=== PATIENT | male | born 1950 | race Caucasian/White ===

== ENCOUNTER 2018-11-16 16:30 | Inpatient (IN) ==
--- NOTE | 2018-11-16 16:50 | PROVIDER DOCUMENTATION ---
HPI-General Adult - General Chief Complaint: Syncope Stated Complaint: SYNCOPE Time Seen by Provider: 11/16/18 16:32 Source: patient, family, EMS Allergies/Adverse Reactions: Patient Allergies Allergy/AdvReac Type Severity Reaction Status Date / Time No Known Allergies Allergy Verified 11/16/18 16:51 - History of Present Illness -Gen Adult Nature of Presenting Problems: Per EMS patient called with concerns that her had slumped over. EMS reports that when they arrived the patient was altered by while they were there the patient became hypotensive and clammy, but was arousable. EMS reports that enrout to the hospital they administered a fluid bolus and and O2. On arrival patient was found to have a HR in the 60s and he was alert and conversant and in no distress. He does not remember the event. He currently denies any pain except chronic pain in his neck. reports that patient got up from one room and stated that he got up too fast and was lightheaded and sat down and slouched down and was not responding, and was only minimally breathing. Timing: reports: improving Context/Activities at Onset: reports: light activity Review of Systems - Adult - REVIEW OF SYSTEMS - ADULT Constitutional: denies: fever Eyes: denies: decreased vision Cardiovascular: denies: chest pain Respiratory: denies: shortness of breath Musculoskeletal: reports: neck pain Integumentary: denies: rash Neurological: reports: syncope Endocrine: reports: other (thyroid disease) Past History - Adult - PAST MEDICAL HISTORY-ADULT Review of Records: reports: Old Records Reviewed Cardiovascular: reports: CAD, HTN Genitourinary: reports: kidney disease Physical Exam-General - CONSTITUTIONAL General Appearance: alert, no apparent distress - EYES Eyes: PERRL/EOMI. negative: conjuctival exudate, scleral icterus - HEAD, EARS, NOSE, MOUTH & THROAT HENMT: normocephalic/atraumatic, other (dry mucous membranes) - NECK Neck: thyromegaly - RESPIRATORY Respiratory: lungs clear, normal breath sounds - CARDIOVASCULAR Cardiovascular: regular rate, rhythm, other (trace lower extremity edema) - GASTROINTESTINAL (ABDOMEN) Abdominal Exam: non tender, soft, hernia (ventral). negative: guarding - MUSCULOSKELETAL Extremity: other (strength 5/5 in upper and LE) - SKIN Integumentary: pallor - NEUROLOGIC Neurologic: threader II-XII nml as tested - PSYCHIATRIC Psych/Mental Status: normal mood/affect, normal thought content, normal thought process Progress - PLAN OF CARE/RESULTS Progress/Plan/Lab Results: Orders Category Date Time Status CBC WITH ELECTRONIC DIFF [HEME] Stat Lab 11/16/18 16:44 Uncollected COMPREHENSIVE METABOLIC PANEL [CHEM] Stat Lab 11/16/18 16:44 Uncollected MAGNESIUM [CHEM] Stat Lab 11/16/18 16:44 Uncollected TROPONIN T Stat Lab 11/16/18 16:44 Uncollected Result Diagrams: 11/16/18 16:40 11/16/18 16:40 - EKG 1 EKG Interpretation (*Must complete 3 of following elements*): Abnormal Rate: 69 Rhythm: sinus [place]: normal QRS: normal [place] Interval: prolonged ST Wave: normal Prior EKG Comparison: no prior EKG Comments: 1st degree heart block Departure - Departure Date of Disposition Decision: 11/16/18 Time of Disposition Decision: 19:55 DIAGNOSIS: Bradycardia Stroke Qualifiers: CVA mechanism: unspecified Qualified Code(s): I63.9 - Cerebral infarction, unspecified Syncope Qualifiers: Syncope type: unspecified Qualified Code(s): R55 - Syncope and collapse Disposition: ADMITTED INPATIENT 09 Certified Medical Emergency: Emergent Condition: Serious Referrals and Follow-Ups: Simi Parada CRNP [Primary Care Provider] - - Critical Care Note This patient required my direct & personal management of CC.: No Attestation - Physician/ SALVATORE Attestation Patient care was provided by Advanced Practice Provider:: No The physician spent face to face time with patient:: Yes Advanced Practice Provider documentation review:: Supervising physician onsite and consulted in the evaluation and care of this patient. The physician did have a face to face encounter with the patient.
[2018-11-16 17:02] LABS: BASO# 0.01 X1000 (0.0-0.2); BASO% 0.3 % (0.0-0.8); EOS# 0.05 X1000 (0.0-0.7); EOS% 1.5 % (0.0-10.0); HEMATOCRIT 27.1 % (42.0-52.0); HEMOGLOBIN 8.2 g/dL (14.0-18.0); LYMPH# 0.98 X1000 (1.2-3.4); LYMPH% 28.9 % (20.5-51.1); MCHC 30.3 g/dL (33-37); MCV 79.2 FL (81-99); MONO# 0.26 X1000 (0.11-0.59); MONO% 7.7 % (1.7-9.3); MPV 10.1 FL (7.4-10.4); NEUT# 2.09 X1000 (1.4-6.5); NEUT% 61.6 % (42.2-75.2); PLT 131 X1000 (130-400); RBC 3.42 XMIL (4.7-6.1); WBC 3.39 X1000 (4.8-10.8)
[2018-11-16 17:09] LABS: ALBUMIN 4.1 g/dL (3.5-5.0); CALCIUM 8.7 mg/dL (8.8-10.2); CREATININE 2.2 mg/dL (0.7-1.2); POTASSIUM 3.8 mmol/L (3.5-5.1); TOTAL BILIRUBIN 0.4 mg/dL (0.20-1.00); TOTAL PROTEIN 6.2 g/dL (6.3-8.3)
--- NOTE | 2018-11-16 18:54 | Diag Imaging Result Doc PS360 ---
EXAM: CT HEAD W/O CONTRAST - 11/16/2018 HISTORY: Syncope TECHNIQUE: CT head without contrast COMPARISON: None. FINDINGS: There is a 0.6 cm periventricular lacunar infarct on the left of nonspecific age. There is no other infarct identified, although acute infarcts may not be immediately visible. There is no evidence of intracranial hemorrhage, mass effect, midline shift, or hydrocephalus. There is no evidence of skull fracture. IMPRESSION: 0.6 cm periventricular lacunar infarct on the left of nonspecific age. No other visible acute intracranial abnormality. No hemorrhage or mass effect. This exam was performed using automated exposure control, adjustment of mA or kV according to patient size, and/or use of iterative reconstruction technique. Electronically signed by Baldo Mak 11/16/2018 6:52 PM
[2018-11-16] MEDS ORDERED: ASPIRIN PO ONE ×2 (19:07→19:57)
--- NOTE | 2018-11-16 19:10 | Diag Imaging Result Doc PS360 ---
EXAM: CHEST-1 VIEW - 11/16/2018 HISTORY: syncope TECHNIQUE: Portable chest one view COMPARISON: None. FINDINGS: Heart size appears the upper range of normal. Inspiration is somewhat shallow. The lungs appear clear. There is no pleural effusion or pneumothorax identified. IMPRESSION: Somewhat shallow inspiration. No other evidence of acute disease. Electronically signed by Baldo Mak 11/16/2018 7:08 PM
[2018-11-16 20:52] LABS: HEMOGLOBIN A1C 7.4 % (4.8-6.0)
--- NOTE | 2018-11-16 20:56 | HISTORY AND PHYSICAL ---
ADDENDUM TO HISTORY AND PHYSICAL: Mr. Allen is a 67-year-old man brought in today because he passed out and was unresponsive for a few seconds, per his . He reports that he stood up to meet his at the door when she came in, felt lightheaded, and felt he was going to pass out, so he had to hold onto a table. Eventually, he worked his way to sit in a chair, and his noticed that he slumped in the chair and was grunting, and noticed that his left arm was trembling. She managed to hyperextend his neck, and then noticed that his breathing became clearer. She at one point, thought he was not breathing. After a few seconds, he snapped out of this spell and wondered what had happened. The patient denies any antecedent cardiorespiratory complaints and denies any residual neurological complaints. A CT the done in the ER, did show a periventricular lacunar infarct of nonspecific age. His other workup was essentially benign. White count 3827, platelets 131,000. His BUN is 36 and creatinine is 2.2. He had no other BUN and creatinine to compare with. The patient denies any change in his medications to the best of his recollection. His blood sugar 160, also. When I saw him, his blood pressure was 168/90. His heart rate was 67, respirations 18, temperature 97.8. His overall exam, cranial nerves intact. No focal deficits on his exam. Cardiovascular exam is grossly benign. He is A O x3. I suspect this patient may have had a syncopal event secondary to poor intravascular blood flow from postural hypotension. His renal function, his creatinine is 2.2, and I do not know if this is new or if his creatinine has worsened from his medications. He denies any fluid losses or blood losses, however. I would recommend fluids at this time and stroke workup, also. Revision of all of his home medications should be done and he should be checked for orthostasis in the morning. cc: Heaven Martinez MD
[2018-11-16 20:57] LABS: INR 1.13; PROTIME 14.6 Seconds (11.0-16.0)
[2018-11-16 21:09] LABS: PTT 25.9 Seconds (22.3-41.8)
--- NOTE | 2018-11-16 21:13 | EKG Report ---
Test Performed on : 11/16/2018 4:32:42 PM Test Reason : Syncope Blood Pressure : / mmHG Vent. Rate : 069 BPM Atrial Rate : 069 BPM P-R Int : 212 ms QRS Dur : 104 ms QT Int : 414 ms P-R-T Axes : 035 002 016 degrees QTc Int : 443 ms Sinus rhythm. with 1st degree AV block. Inferior infarct , age undetermined Abnormal ECG No previous ECGs available Unconfirmed Result
[2018-11-16] MEDS ORDERED: TYLENOL PO PRN (22:33)
[2018-11-16] MEDS ORDERED: ZOFRAN IV PRN (22:33)
[2018-11-16] MEDS ORDERED: NS 1,000 ML IV SCH (23:00)
[2018-11-16] MEDS: FISH OIL CONCENTRATE PO SCH (23:15)
--- NOTE | 2018-11-17 00:20 | HISTORY AND PHYSICAL ---
PRIMARY CARE PROVIDER: Dr. Amadeo Brown. PROFILE SAW OPERATOR: Dr. Georgi Gates. DATE AND TIME: 11/16/2018 at 2030. CHIEF COMPLAINT: Syncope. HISTORY OF PRESENT ILLNESS: Mr. Allen is a 67-year-old male with a past medical history most notable for coronary artery disease status post stent placement x1, COPD, diabetes mellitus, hypertension, and chronic kidney disease. The patient reports that he has been having problems with anemia and has been feeling more fatigued than normal. He states that given this, he was ordered to have an EGD and colonoscopy. The patient states he actually was beginning the prep for this afternoon, he had began the Dulcolax medication portion of the prep, though had not started the GoLYTELY yet. He stated that other than this and feeling fatigued, that he had felt fine all day as well as the past couple days. He denies not feeling well recently or being sick. He denied any complaints, other than fatigue, prior to his episode this evening. He also denied any new or recent changes to any of his medications. The patient states that he did feel a little dizzy, so he went and sat down in his chair. The patient states that he had gotten up from his chair, was going to walk into the kitchen and began to feel dizzy. He states secondary to this, he did immediately return to his chair and sit back down, though his states when he sat down that he slumped over forward and was unresponsive. She stated for a period of approximately 3 minutes that she did try to awaken him. She said initially when he was slumped over that he seemed to not be breathing okay, and at one point she thought he was not breathing at all. She was able to get his head leaned back and then his breathing improved. She did call EMS. Upon their arrival, according to the ER note from the nurse, they stated that his blood pressure was 45/30 at the time of their arrival and his heart rate was in the 20s to 30s. His stated that he was pale and when he did come around, he was a little confused, though this quickly resolved. Upon arrival to the ER, the patient's heart rate had improved, he was 70 systolic. He did receive what looks like just a little bit under a 500 mL bolus from EMS. Though, they did still note that he was slightly pale and a little diaphoretic upon arrival. His vital signs were temperature 97.8 degrees, heart rate 67, respirations 18, blood pressure is 133/70, oxygen saturation is 100% on room air. Other than the fatigue and dizziness, as previously mentioned, which the patient states his dizziness has not occurred since his syncopal episode. The patient denies any other symptoms. He denies any headache, visual disturbances, chest pain, shortness of breath, abdominal pain, nausea, vomiting, or diarrhea. He denies any dysuria or urinary frequency. He denies any pain, numbness, tingling, or swelling in extremities. His denies him to her knowledge, not acting like himself today or being confused. She denied him having any speech disturbances that she was aware of. Upon evaluation in the ER, patient's EKG did show sinus rhythm with a first- degree AV block at a rate of 69 with a QTc of 443, though at this time, we are uncertain if this first-degree block has been present previously. The patient has just recently moved here within the last year and a half from [place], [place], and has not previously been admitted to our facility. They noted that upon arrival, he was alert and oriented to person, place, time, and situation. Upon my assessment, the patient was sitting up in bed. His skin color does look slightly pale, though he is not in any distress. He was sitting up in bed, he is awake and alert. He is oriented to person, place, time, and situation. He did answer questions and follow commands appropriately. He is denying any symptoms at this time. He denies any history of a stroke, though CT of the head did show a lacunar infarct on the left of nonspecific age. There was no other acute intracranial abnormalities. CK and troponin were negative, though he is a little anemic with a hemoglobin 8 and hematocrit 27. Except for his creatinine being elevated 2.2 with a GFR 30, which he does have chronic kidney disease, all other labs were unremarkable. He was given an aspirin in the ER. He will be admitted for further treatment and evaluation of his syncope and rule out possible stroke as well. REVIEW OF SYSTEMS: A 14-point review of systems was conducted with the patient and all were negative, except for pertinent positives mentioned in the above HPI. PAST MEDICAL HISTORY: 1. COPD. 2. Diabetes mellitus. 3. Hyperlipidemia. 4. Hypertension. 5. Chronic kidney disease. 6. Hypothyroidism. 7. BPH. 8. Coronary artery disease status post cardiac stent placement x1 on 08/18/2008. PAST SURGICAL HISTORY: 1. Cardiac stent placement x1 in 2008. 2. A sinus surgery. SOCIAL HISTORY: The patient is a former smoker. He did smoke 2 to 3 packs per day for a period of approximately 25 years, though quit smoking over 20 years ago. He states he only used to drink very rarely, though has not had any alcohol since 2007. He does use smokeless tobacco at this time. There is no history of illicit drug use. He is , his was present at bedside during our examination. He is retired. FAMILY HISTORY: Positive for his Mother having a history of diabetes mellitus and a pacemaker. His Father had diabetes mellitus as well. He does have a brother who has a pacemaker also. ALLERGIES: Patient has no known allergies. HOME MEDICATIONS: 1. Ventolin HFA inhaler 1 puff inhaled p.r.n. as directed for wheezing and shortness of breath. 2. Aspirin 81 mg p.o. daily. 3. Lipitor 20 mg p.o. daily. 4. Plavix 75 mg p.o. daily. 5. Cardura 4 mg p.o. daily. 6. Lasix 40 mg p.o. daily. 7. Glimepiride 4 mg p.o. b.i.d. 8. Levemir FlexTouch 50 units subcutaneous daily. 9. Levothyroxine 100 mcg tablet p.o. daily. 10. Tradjenta 5 mg p.o. daily. 11. Victoza 1.8 mg subcu daily. 12. Losartan potassium 25 mg p.o. daily. 13. Metoprolol 50 mg p.o. daily. 14. Fish oil 1000 mg capsule 1 capsule p.o. b.i.d. 15. Viagra 100 mg p.o. p.r.n. as directed. 16. Trazodone 50 mg p.o. b.i.d. 17. Anoro Ellipta 62.5-25 mcg inhaled, 1 puff inhaled daily. DIAGNOSTIC DATA/LABORATORY RESULTS: White blood cell count is 3390, hemoglobin 8.2, hematocrit 27.1, platelet count is 131,000. PT 14.6, INR 1.13, PTT is 25.9. Sodium 135, potassium 3.8, chloride 99, serum bicarb is 26, BUN is 36, creatinine 2.2. GFR 30, glucose 162, calcium 8.7, magnesium 2. Liver function tests within normal limits. CK 109, troponin less than 0.01. TSH was 3.24. EKG did show sinus rhythm with a first-degree AV block at a rate of 69 with a QTc of 443. Chest x-ray showed somewhat shallow inspiration, though no other evidence of acute disease, as per Radiology. Head CT without contrast showed at 0.6 cm periventricular lacunar infarct on the left of nonspecific age. There were no other visible acute intracranial abnormalities. There was no hemorrhage or mass effect. This is per Radiology. Pending diagnostic studies, at this time, are a urinalysis and anemia profile. PHYSICAL EXAMINATION: VITAL SIGNS: The patient's heart rate is 74, respirations 18, blood pressure is 135/63, oxygen saturation is 100% on nasal cannula at 2 L. GENERAL: Mr. Allen is a very pleasant 67-year-old male, he was resting in the ER stretcher. He was in no acute distress. He was awake, alert, and able to answer questions appropriately. HEENT: Head is atraumatic, normocephalic. Pupils are equal, round, reactive to light, were 3 mm bilaterally and brisk. EOMs were intact. Subconjunctivae were slightly pale. Oral mucosa was moist. Oropharynx was clear. NECK: Supple. Trachea midline. No carotid bruits noted upon auscultation bilaterally. CARDIOVASCULAR: Patient has S1, S2 present. No murmurs, gallops, rubs appreciated with a regular rate and rhythm. PULMONARY: Patient has symmetrical chest expansion bilaterally. Lung sounds are clear to auscultation in bilateral full strange. ABDOMEN: Soft, nontender. Does not appear to be distended. The patient did have a slightly protuberant abdomen noted. Bowel sounds are present in all 4 quadrants, were normoactive. EXTREMITIES: No cyanosis or edema noted. Pulse, motor, and sensory were intact in all extremities. Radial and pedal pulses were 2+ bilaterally. INTEGUMENTARY: The patient's skin color does look a little pale, though is dry and intact. NEUROLOGICAL: Patient is alert and oriented to person, place, time, and situation. He is able to move all extremities. He is denying any numbness or tingling. His speech is clear and understandable. EOMs were intact. He has no facial droop noted. He has equal hand grasp and muscle grasp bilaterally. He has no arm drift noted. There are no focal neurological deficits noted at this time. ASSESSMENT AND PLAN: 1. Syncope. This may be cardiac and/or neurological in nature. EMS reported that his heart rate was low, in the 20s to 30s, upon arrival as well as his blood pressure was low. He may have had a vagal response or possibly orthostatic hypotension. Though the patient's CT of the head without contrast did show a left lacunar infarct of nonspecific age, we will need to rule out possible stroke as well. For further evaluation of this, we have placed the patient to have an MRI of the brain without contrast and MRA of the neck with contrast in the morning. He will have an echocardiogram as well. We have placed a consult with Cardiology and Neurology. We will perform a series of cardiac enzymes, a lipid profile, and repeat an EKG in the morning. He will be placed on continuous cardiac telemetry with vital signs q.4 hours. We will monitor his condition closely. We have continued his aspirin and Plavix at this time. We will await Cardiology and Neurology's evaluation and further recommendations for management. 2. Possible cerebrovascular accident. We will continue with treatment as mentioned above for #1. 3. History of coronary artery disease status post cardiac stent placement x1. We will continue with the patient's aspirin and Plavix, though we have held his metoprolol and losartan, at this time, given his syncope and reports that he was bradycardic and hypotensive. We will continue to monitor this closely. 4. Hypertension. As previously mentioned above, we have held his metoprolol and losartan at this time. We will monitor his blood pressure closely. 5. Hyperlipidemia. We will continue his Lipitor. We are obtaining a lipid profile in the morning. 6. Diabetes mellitus. We have placed the patient on a sliding scale regular insulin per low-dose protocol. We will do pattern fingerstick blood sugars. He will be on a diabetic diet. 7. Chronic kidney disease. The patient does report he has a history of kidney disease, though we do not know what his baseline is at this time. We will avoid nephrotoxic medications and renally dose medicines as necessary. We are going to provide the patient with some gentle fluid hydration with normal saline 100 mL/h. We will do strict intake and output. We will continue to follow. 8. Anemia. We have placed an order for an anemia profile. The patient did report that he has been fatigued lately and they were going to do an EGD and colonoscopy for continued evaluation of this and to rule out possible blood loss from any gastrointestinal bleeding. Given this, we will go ahead and order a Hemoccult stool. Though the patient is a little anemic, I am not sure if this may have contributed to his syncope. We are going to hydrate him and do orthostatics in the morning. 9. Deep vein thrombosis prophylaxis will be provided with sequential compression devices. The patient has been placed on the medical floor with telemetry. We will do vital signs q.4 hours, strict intake and output, incentive spirometry. He will be on a diabetic diet, though will be NPO after midnight tonight just for a lipid profile in the morning, then his diet can be resumed. We will await results of diagnostic studies that have been ordered for the morning along with other labs, as mentioned above. We will repeat a CBC and BMP in the morning. Further orders and recommendations pending hospital course, diagnostic studies, and physician evaluation. Dictated by HESHAM Hoang for Heaven Martinez MD cc: Heaven Martinez MD MTDD
[2018-11-17] MEDS: DUONEB (A & A) INH PRN (03:15)
[2018-11-17] MEDS: SYNTHROID PO SCH (06:23)
[2018-11-17 07:17] LABS: CALCIUM 8.3 mg/dL (8.8-10.2); CREATININE 2.1 mg/dL (0.7-1.2); POTASSIUM 3.9 mmol/L (3.5-5.1)
[2018-11-17 07:24] LABS: BASO# 0.01 X1000 (0.0-0.2); BASO% 0.2 % (0.0-0.8); EOS# 0.07 X1000 (0.0-0.7); EOS% 1.5 % (0.0-10.0); HEMATOCRIT 26.1 % (42.0-52.0); HEMOGLOBIN 7.9 g/dL (14.0-18.0); LYMPH% 21.6 % (20.5-51.1); MCHC 30.3 g/dL (33-37); MCV 79.3 FL (81-99); MONO# 0.32 X1000 (0.11-0.59); MONO% 6.9 % (1.7-9.3); MPV 10.5 FL (7.4-10.4); NEUT# 3.24 X1000 (1.4-6.5); NEUT% 69.8 % (42.2-75.2); PLT 146 X1000 (130-400); RBC 3.29 XMIL (4.7-6.1); RDW 15.9 % (11.5-14.5); WBC 4.64 X1000 (4.8-10.8)
--- NOTE | 2018-11-17 07:32 | EKG Report ---
Test Performed on : 11/17/2018 07:14:47 AM Test Reason : Syncope,Bradycardia Blood Pressure : / mmHG Vent. Rate : 071 BPM Atrial Rate : 071 BPM P-R Int : 208 ms QRS Dur : 098 ms QT Int : 394 ms P-R-T Axes : 053 007 020 degrees QTc Int : 428 ms Normal sinus rhythm. Cannot rule out Inferior infarct (cited on or before 16-NOV-2018) Abnormal ECG When compared with ECG of 16-NOV-2018 16:32, (Unconfirmed) No significant change was found Confirmed by Mai HERMAN, Aguila Ulloa ([id number]) on 11/17/2018 8:44:56 AM
[2018-11-17 07:43] LABS: FERRITIN 8 ng/mL (30-400)
[2018-11-17] MEDS ORDERED: ATIVAN IV ONE (10:06)
[2018-11-17 10:40] LABS: URINE SOURCE CLEAN CATCH
[2018-11-17 10:44] LABS: BILIRUBIN URINE NEGATIVE (NEGATIVE); BLOOD URINE NEGATIVE (NEGATIVE); COLOR YELLOW; GLUCOSE URINE NEGATIVE (NEGATIVE); KETONE URINE NEGATIVE (NEGATIVE); LEUKOCYTES URINE NEGATIVE (NEGATIVE); NITRITE URINE NEGATIVE (NEGATIVE); PH URINE 6.5; PROTEIN URINE NEGATIVE (NEGATIVE); SP GRAVITY URINE 1.012; TURBIDITY URINE CLEAR (CLEAR); UROBILINOGEN URINE NORMAL (NORMAL)
[2018-11-17 10:45] LABS: UR EPITHELIAL CELLS <10 /HPF (<10); URINE BACTERIA NEGATIVE /HPF; URINE RBC <10 /HPF (<10); URINE WBC <10 /HPF (<10)
[2018-11-17] MEDS: LIPITOR PO SCH (10:46)
[2018-11-17] MEDS: FISH OIL CONCENTRATE PO SCH ×2 (10:47→22:53)
[2018-11-17] MEDS: PLAVIX PO SCH (10:47)
[2018-11-17] MEDS: ASPIRIN PO SCH (10:47)
--- NOTE | 2018-11-17 11:51 | Diag Imaging Result Doc PS360 ---
EXAM: MRI BRAIN W/O CONTRAST 11/17/2018 HISTORY: Syncope,Poss. CVA TECHNIQUE: T1 sagittal, axial, axial T2, FLAIR, DWI and coronal gradient echo. COMMENT: There are no previous MR studies available for comparison. There is a small lacune in the centrum semiovale ovale posteriorly on the left. There is no evidence of mass effect, bleed, or abnormal extra-axial fluid collection. There is no evidence of restricted diffusion. IMPRESSION: Minimal microvascular chronic white matter change. No evidence of acute disease. Electronically signed by Reji Rajan 11/17/2018 11:49 AM
--- NOTE | 2018-11-17 12:00 | Diag Imaging Result Doc PS360 ---
EXAM: MRA NECK W/CONT 11/17/2018 HISTORY: Syncope,Poss. CVA TECHNIQUE: 3-D contrast enhanced MRI COMMENT: The vertebral basilar and posterior cerebral arteries proximally are normal in appearance. Both internal carotid arteries are patent. There may be some narrowing of the proximal right internal carotid artery. This appears fairly smooth. There are no previous studies available for comparison. The proximal portions of both middle cerebral and anterior cerebral arteries are apparently patent. 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 Comparison with previous studies and correlation with carotid Doppler ultrasound may be desirable. Electronically signed by Reji Rajan 11/17/2018 11:58 AM
--- NOTE | 2018-11-17 13:08 | CONSULTATION ---
DATE OF CONSULTATION: 11/17/2018 HISTORY OF PRESENT ILLNESS: Mr. Allen is 67 years old and he had a passing out spell yesterday. History from the patient is that he felt lightheaded when he stood. He walked through the house, put his hands down on furniture to steady himself and had a sense that he needed to sit down. He got to a spot to sit and sat down. He next realized he was "coming to" with on the telephone, calling 911. He has complete recollection of events prior to and after the short period of unconsciousness. reports seeing the patient sit down and slump forward with gurgling breathing and some left arm jerking. Left arm jerking might have been rhythmic. She did not notice jerking of any other limb. That episode lasted 2 or 3 minutes and resolved spontaneously. She believes that he seemed to breathe more consistently when she put her hands on his shoulders and pushed him back into the chair. There was no incontinence, tongue biting, lip biting. There was not definite postictal state. There was no postictal left-sided weakness or other focal neurologic feature. Ambulance was summoned. 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 He has had lightheadedness as often as a few times daily in recent weeks. This had never progressed to the point of collapse or unconsciousness before yesterday. He has never had diagnosed stroke, seizure, serious head injury, other neurologic event. He does not use ethanol. Past history is remarkable for diabetes mellitus, hypertension, dyslipidemia. He was taking aspirin, clopidogrel, atorvastatin, medicines to control blood sugar and blood pressure. He reports no missed doses and no recent medication changes. He has chronic anemia. Colonoscopy was planned for workup for that problem. He was preparing for colonoscopy yesterday. He had not had much oral intake through the day. He had taken his medicines as usual. He had used a Dulcolax suppository with some results. He was having some stomach cramps but he had not started the major portion of the prep and he was not having diarrhea. Workup includes labs showing BUN 36, which was a little bit above baseline. There was low WBC, hemoglobin and hematocrit. Glucose was 150 to 160 initially and then 100 to 120 after admission. A1c was 7.4%. Noncontrast CT of the head showed left periventricular lacune. Brain MRI without contrast was just completed and shows that subcortical left hemisphere lacune with some scattered micro ischemic white matter changes but nothing else focal and nothing acute. Cervical MRA raises question of right internal carotid narrowing which may not be stenotic. Vital sign record shows he has been afebrile. Heart rate has ranged 60s to 80s. Blood pressure systolic has ranged 120s to 130s here. PHYSICAL EXAMINATION: On exam, Mr. Allen is awake, alert, attentive, appropriate. He is completely oriented to all parameters. He is cognitively intact. He discussed recent news with accurate detail. Speech is not dysarthric. Language function is intact on careful bedside testing. Head and neck are unremarkable. Visual strange are full tested by confrontational finger counting. Extraocular movements are full. Facial motility is symmetric. Gag is intact. Tongue is midline. Palate elevates in midline. He can hear. Shoulder shrug is equal. Strength is normal in the arms and legs. He did well on [id number] testing bilaterally. He reports good pinprick appreciation over the hands. I did not test his gait. Reflexes are trace at the ankles and 1+ symmetrically at the wrists. Plantar response is silent bilaterally. IMPRESSION: 1. Recent collapse. Features sound more like postural lightheadedness, syncope, possibly some clonic activity with syncope but much less likely seizure or other primary central nervous system event . I will order EEG for completeness. I encouraged him to stand slowly, to sit quickly if he is lightheaded, to take his medicines as directed and to try to stay well hydrated. 2. MRA evidence of narrowed carotid. This is likely not symptomatic. Carotid ultrasound might provide more helpful information. 3. Clinical evidence of peripheral neuropathy, presumed diabetic neuropathy. I do not think this needs urgent attention. I encouraged him to be aggressive with management of his blood sugar. 4. Imaging evidence of tiny subcortical left hemisphere lacune. This appears to be old and not related in any way to his recent episode. I encouraged him to be aggressive with management of his cerebrovascular risk factors. There is not history of clinical stroke. Thanks for asking Neurology to see Mr. Allen. If EEG is unremarkable, I will not have any other suggestion. cc: MD CLARIBEL Adrian III
--- NOTE | 2018-11-17 14:58 | PROGRESS NOTE ---
DATE: 11/17/2018 INTERVAL HISTORY: Mr. Allen was admitted for syncopal episode. 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 SUBJECTIVE: Currently, patient is denying any complaints. The patient's is at bedside. He has not had any such episode. I discussed with him about the fact that he is on metoprolol losartan as well as furosemide which could contribute to potential postural hypotension. I also discussed with him about holding off on these medications for now. I answered all of their questions. He is about to undergo EEG. VITALS: Temperature 98.5 degrees, pulse 74, respiratory 18, blood pressure 128/63, and saturating 98% on 2 L nasal cannula. PHYSICAL EXAMINATION: General: He does not appear in acute distress. HEENT: Oral cavity is moist. Lungs: Air entry bilaterally equal. No wheeze, rhonchi, or crackles. Cardiovascular: S1, S2 normal. No murmur, rub or gallop. Abdomen: Soft and nontender. Extremities: No lower extremity edema. Neurologic: He is alert and oriented x3. Sensation bilateral upper and lower extremity intact. Motor power 5/5 bilateral upper and lower extremity. No facial asymmetry. Intact calf. Intact speech. LABORATORY: Labs suggestive of microcytic anemia. Normal platelet count. Normal electrolytes. Chronic kidney disease stage 3. MICROBIOLOGY: No data. IMAGING: Neck MRA had proximal narrowing of the right internal carotid artery which may be congenital on comparison with previous study was recommended. Brain MRI had small lacunae in the centrum semiovale posteriorly on the left. Echocardiogram was not performed, and carotid ultrasound was pending. ASSESSMENT AND PLAN: 1. Syncope likely due to postural hypotension. However, seizure needs to be ruled out. Follow up orthostatic vitals. Continue to hold his antihypertensive medication including metoprolol, losartan, doxazosin and furosemide. I will add back as tolerated. I will also follow up with echocardiogram, ultrasound carotids to rule out internal carotid artery stenosis. 2. History of coronary artery disease status post stent in 2008. Continue aspirin, atorvastatin, and clopidogrel. 3. Insulin-dependent diabetes mellitus type 2 as well as chronic kidney disease stage 3. Currently stable. Continue half the dose of detemir until oral intake improves with sliding scale insulin. 4. History of chronic anemia. He should complete outpatient workup where he was scheduled to receive EGD and colonoscopy. 5. Benign prostatic hypertrophy. I am holding his doxazosin, and I will consider direct recommending finasteride. Noticeably, he is also listed to be taking sildenafil which could potentially cause profound hypotension. 6. Disposition: I will continue to monitor patient in the hospital for 24 hours. Plan of care discussed with the patient and his . All of their questions have been answered. cc: Dioni Salomon MD
[2018-11-17] MEDS: HUMALOG SUBQ SCH ×3 (17:38→22:54)
--- NOTE | 2018-11-17 17:52 | ECHO REPORT ---
ORDER DATE: 11/17/2018 REQUESTING PHYSICIAN: Hospitalist. INDICATION: Syncope. M-MODE MEASUREMENTS: Left ventricle end diastole: 5.8. Left ventricle end systole: 3.5. Posterior wall: 1.1. Interventricular septum: 1.1. Left atrium: 4.7. Aortic diameter: 3.5. SUMMARY OF 2-DIMENSIONAL IMAGIN. The study was difficult. Optison was added to optimize visualization of the endocardium. 2. Left ventricular function appears to be normal, estimated at 55% to 60%. There is no wall motion abnormality noted. 3. The right ventricle appears to be normal. 4. The aortic valve looks normal. Color flow mapping unremarkable. 5. The mitral valve looks normal. Color flow mapping unremarkable. 6. Pulsed wave Doppler of mitral inflow shows reversal of the E/A ratio. The ratio is 0.8. 7. Tissue Doppler of septal and lateral mitral annulus averages 7 cm. 8. There is no diastolic dysfunction. 9. The tricuspid valve looks normal. Color flow mapping unremarkable.Pulmonary pressure estimated at 26 mmHg. 10.The pulmonic valve looks normal. Color flow mapping unremarkable. 11.There is no pericardial effusion. No mass, no thrombus. 12.The right-sided chambers do not appear to be dilated. Clinical correlation recommended. cc: Deep Wu MD
[2018-11-17] MEDS ORDERED: LEVEMIR SUBQ SCH (21:00)
--- NOTE | 2018-11-17 21:04 | Carotid Study ---
DATE: 11/17/2018 REFERRING PHYSICIAN: Dr. Salomon. 67-year-old santi. GEOTHERMAL OPERATIONS MANAGER: Christine Stapleton RVT. INDICATION: Transient ischemic attack. FINDINGS: The right ICA/CCA ratio is 1.32, corresponding to a percent stenosis of 40 to 59 percent. The left ICA/CCA ratio is 1.05, corresponding to a percent stenosis of 0 to 39 percent. INTERPRETATION: Mild to moderate atherosclerotic disease, right worse than left, of the bilateral distal common and internal carotid arteries. There is no significant stenosis in either carotid system. cc: MD Dioni Batista MD
[2018-11-17] MEDS ORDERED: INSULIN PEN NEEDLES ONE (22:34)
[2018-11-18] MEDS: HUMALOG SUBQ SCH ×2 (06:09→14:05)
[2018-11-18] MEDS: SYNTHROID PO SCH (06:34)
[2018-11-18] MEDS: FISH OIL CONCENTRATE PO SCH (09:09)
[2018-11-18] MEDS: ASPIRIN PO SCH (09:09)
[2018-11-18] MEDS: LIPITOR PO SCH (09:10)
[2018-11-18] MEDS: PLAVIX PO SCH (09:10)
[2018-11-18] MEDS: DUONEB (A & A) INH PRN (10:08)
[2018-11-18] MEDS ORDERED: COZAAR PO SCH (11:00)
[2018-11-18 11:19] VITALS: BP 149/59
--- NOTE | 2018-11-18 12:58 | PROGRESS NOTE ---
DATE: 11/18/2018 SUBJECTIVE: Mr. Allen has not had any further episodes of syncope, near syncope, collapse. He feels well today. He does not have any specific complaint. His carotid ultrasound was unremarkable. Cervical MRA had raised question of right internal carotid narrowing, but ultrasound does not show significant stenosis. EEG showed nothing remarkable and no epileptiform discharge or other evidence of tendency to seizure. I don't see significant hypotension or bradycardia recorded on vital signs record. I do not have anything new to recommend from Neurology standpoint. I encouraged him to stay well hydrated, to stand slowly and to sit quickly if he is lightheaded. Thanks for asking Neurology to see Mr. Allen. I will be glad to see him again if needed. cc: MD CLARIBEL Adrian III
--- NOTE | 2018-11-18 14:19 | EEG REPORT ---
DATE: 11/17/2018 COMMENT: This is a digitally recorded EEG on a 67-year-old patient with recent collapse, associated left arm jerking, bradycardia and hypotension. FINDINGS: During waking, low to medium amplitude polymorphic and rhythmic theta are recorded across the hemispheres symmetrically. There is very poorly sustained 9 Hz posterior rhythm bilaterally with uncertain reactivity to eye opening. Drowsing occurred briefly. Stage 2 sleep was not recorded. Photic stimulation did not significantly alter the record. Hyperventilation was not done. No definite epileptiform discharge was identified. INTERPRETATION: Normal EEG. CORRELATION: The absence of epileptiform discharges on a single EEG does not exclude a clinical diagnosis of seizures, but there is nothing on this record to suggest a seizure disorder as the reason for his recent episode. cc: Blake Raines III, MD MTDSarthak
--- NOTE | 2018-11-19 05:44 | DISCHARGE SUMMARY ---
ADMISSION DATE: 11/16/2018 DISCHARGE DATE: 11/18/2018 DISCHARGE DISPOSITION: Home with family. DISCHARGE CONDITION: Hemodynamically stable. He is alert and oriented x3. He is able to come out of bed, and go to the bathroom multiple times without any trouble though he did have a drop in his systolic blood pressure while standing up. However, he was not symptomatic. DISCHARGE DIAGNOSES: 1. Syncope most likely due to postural hypotension. 2. Microcytic anemia being worked up through esophagogastroduodenoscopy and colonoscopy outpatient. OTHER DIAGNOSES: 1. History of coronary artery disease status post stent in 2008. 2. Insulin-dependent diabetes mellitus type 2. 3. Chronic kidney disease stage 3. 4. History of chronic anemia, pending esophagogastroduodenoscopy and colonoscopy outpatient. 5. Benign prostatic hypertrophy. 6. 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 7. Hypothyroidism. 8. Benign prostatic hypertrophy. 9. Essential hypertension. CONSULTATION DURING HOSPITAL ADMISSION: Dr. Raines, Neurology. DISCHARGE MEDICATIONS: 1. Anoro Ellipta 62.5 25 mcg inhaler 1 puff daily. 2. Aspirin 81 mg daily. 3. Plavix 75 mg daily. 4. Trazodone 50 mg b.i.d. 5. Fish Oil 1000 mg b.i.d. 6. Glimepiride 4 mg b.i.d. 7. Insulin detemir 50 units subcutaneously daily. 8. Atorvastatin 20 mg daily. 9. Losartan 25 mg daily. 10. Levothyroxine 100 mcg daily. 11. Linagliptin 5 mg daily. 12. Albuterol sulfate inhaler 1 puff inhaled as needed for shortness of breath. 13. Liraglutide 1.8 mg subcu daily. VITALS: At the time of discharge, temperature 97.4 degrees, pulse 84, respiratory rate 18, blood pressure 150/59 and saturating 96% on room air. PHYSICAL EXAMINATION: General: Does not appear in any acute distress. HEENT: Oral cavity is moist. Lungs: Air entry bilaterally equal. No wheeze, rhonchi, or crackles. Cardiovascular: S1, S2 normal. No murmur, rub, or gallop. Abdomen: Soft and nontender. Extremities: No lower extremity edema. Neurologic: He is alert and oriented x3. His examination is nonfocal. His speech is intact. SIGNIFICANT LABORATORY: During hospital admission and discharge, WBC 4.6, hemoglobin 7.9, mean corpuscular volume 79, platelet 146,000, BUN 33, creatinine 2.1, and blood sugar 217. Ferritin was 8 suggestive of iron deficiency anemia. Vitamin B12 718, total cholesterol 100. Urinalysis was negative. SIGNIFICANT MICRO DURING HOSPITAL ADMISSION: None. SIGNIFICANT IMAGING DURING HOSPITAL ADMISSION: 1. Head CT on admission had 0.6 cm periventricular lacunar infarct on the left which was of nonspecific age. There was no however visible acute intracranial pathology. 2. Chest x-ray on admission had somewhat shallow inspiration. No other evidence of acute disease. 3. Neck MRA had proximal narrowing of the right internal carotid artery which may be congenital. 4. Brain MRI had minimal microvascular chronic white matter changes. There was small lacunar in the centrum semiovale posteriorly on the left. Carotid Doppler study had mild to moderate atherosclerotic disease right worse than left of bilateral distal, common and internal carotid arteries. There was no significant stenosis in either carotid system. 5. Electrocardiogram on admission had a sinus rhythm with first-degree AV block, inferior infarct age undetermined. Echocardiogram had ejection fraction of 55 to 60 percent without any wall motion abnormality. The right ventricle appeared normal. There was no intracardiac mass or thrombus. HOSPITAL COURSE SUMMARY: Mr. Allen is a 67 year old man with past medical history of coronary artery disease, essential hypertension, and insulin-dependent diabetes mellitus, who was diagnosed to have microcytic anemia, and was being worked up outpatient. He was to undergo EGD and colonoscopy. However, before he could start his bowel preparation at home when he got up from his chair and was trying to move inside his house had suddenly started developing dizziness so he called his , and he sat down back on his chair. According to , after he is sitting down, he slumped over the chair and was diaphoretic and pale. The entire episode could have lasted about 2 minutes so the EMS was called. Upon arrival, according to the ER note from the nurse, he was hypotensive with a systolic blood pressure in the 60s when the EMS arrived to his house and his pulse rate was in 30s. However, there was no clear documentation of this. In any case, he had regained his consciousness at home within 2 to 3 minutes and was initially a little confused when he was brought to the emergency room. By the time he came in, he was alert and oriented x3 and hemodynamically was stable so the hospitalist team was consulted for further management. He underwent extensive brain imaging including MRI, MRA, ultrasound carotid, echo and EKG which were largely unremarkable without any evidence of ischemic stroke. On orthostatic vital signs, he was noted to have a drop in his systolic blood pressure from 150 in supine position to 115 on standing position. He was also listed to be taking metoprolol, furosemide, losartan and doxazosin. It was thought that his episode was likely because of postural hypotension. Neurology Team was on board, and EEG did not detect any epileptiform discharge. At the time of discharge, his losartan was resumed and he was advised to check his blood pressure. If systolic blood pressure would go more than 140, resume metoprolol after consultation with his heart doctor and regular doctor. TIME SPENT: Less than 30 minutes were spent in discharging this patient. Plan of care was extensively discussed with the patient and his . cc: Dioni Salomon MD MTDD
== END 2018-11-18 14:40 | disposition home or self-care (01) | DRG 312 ==
LOC: SUPCPDRO → ED 16:30 → 3N 21:33 → SUATTDRO 21:33
PROVIDERS: ATTEND Internal Medicine

== ENCOUNTER 2019-01-15 01:22 | Inpatient (IN) ==
[2019-01-15] MEDS ORDERED: NS 1,000 ML IV ONE (01:41)
[2019-01-15 02:02] LABS: BASO# 0.02 X1000 (0.0-0.2); BASO% 0.3 % (0.0-0.8); EOS# 0.03 X1000 (0.0-0.7); EOS% 0.5 % (0.0-10.0); HEMATOCRIT 22.9 % (42.0-52.0); HEMOGLOBIN 6.6 g/dL (14.0-18.0); IMM GRAN# 0.05 X1000 (0.0-0.04); IMM GRAN% 0.8 % (0.0-0.5); LYMPH# 0.98 X1000 (1.2-3.4); LYMPH% 15.2 % (20.5-51.1); MCH 22.8 PG (27-31); MCHC 28.8 g/dL (33-37); MONO# 0.27 X1000 (0.11-0.59); MONO% 4.2 % (1.7-9.3); NEUT# 5.08 X1000 (1.4-6.5); PLT 181 X1000 (130-400); RDW 19.8 % (11.5-14.5); WBC 6.43 X1000 (4.8-10.8)
[2019-01-15 02:07] LABS: INR 1.14; PROTIME 14.8 Seconds (11.0-16.0)
[2019-01-15 02:13] LABS: ALB/GLOB RATIO 1.6; ALBUMIN 3.6 g/dL (3.5-5.0); CALCIUM 8.4 mg/dL (8.8-10.2); CREATININE 2.8 mg/dL (0.7-1.2); TOTAL BILIRUBIN 0.36 mg/dL (0.20-1.00); TOTAL PROTEIN 5.8 g/dL (6.3-8.3)
[2019-01-15] MEDS ORDERED: NS 500 ML IV ONE (02:21)
--- NOTE | 2019-01-15 04:48 | PROVIDER DOCUMENTATION ---
This chart was entered by Anamaria Amador Scribe, acting as scribe for Monica Cabrera MD. HPI-Abdominal Pain/GI Problem - General Chief Complaint: Rectal Bleeding Stated Complaint: G I Bleed Time Seen by Provider: 01/15/19 01:45 Source: patient Allergies/Adverse Reactions: Patient Allergies Allergy/AdvReac Type Severity Reaction Status Date / Time No Known Allergies Allergy Verified 11/16/18 16:51 Home Medications: Home Medication List Medication Instructions Recorded Confirmed Last Taken Type ATORVAstatin [Lipitor] 20 mg PO DAILY 11/16/18 01/15/19 Unknown History Albuterol Sulfate Inhaler 1 puff PO PRN PRN 11/16/18 01/15/19 Unknown History [Ventolin Hfa] Aspirin 81 mg PO DAILY 11/16/18 01/15/19 Unknown History Clopidogrel Bisulfate [Clopidogrel] 75 mg PO DAILY 11/16/18 01/15/19 Unknown History Glimepiride 4 mg PO BID 11/16/18 01/15/19 Unknown History Insulin Detemir [Levemir Flextouch] 50 units SUBQ DAILY 11/16/18 01/15/19 Unknown History Levothyroxine [Synthroid] 1 tab PO DAILY 11/16/18 01/15/19 Unknown History Linagliptin [Tradjenta] 5 mg PO DAILY 11/16/18 01/15/19 Unknown History Losartan Potassium 50 mg PO DAILY 11/16/18 01/15/19 Unknown History [place]-3 Fatty Acids/Fish Oil [Fish 1,000 mg PO BID 11/16/18 01/15/19 Unknown History Oil 1,000 mg Capsule] Trazodone [Desyrel] 50 mg PO BID 11/16/18 01/15/19 Unknown History Umeclidinium Brm/Vilanterol Tr 1 puff PO DAILY 11/16/18 01/15/19 Unknown History [Anoro Ellipta 62.5-25 Mcg INH] Albuterol Sulfate [Ventolin Hfa] 90 mcg PO DAILY 01/15/19 01/15/19 Unknown History Carvedilol 3.125 mg PO DAILY 01/15/19 01/15/19 Unknown History Cholecalciferol (Vitamin D3) 5,000 unit PO DIRECTED 01/15/19 01/15/19 Unknown History [Vitamin D3] Furosemide [Lasix] 40 mg PO DAILY 01/15/19 01/15/19 Unknown History Liraglutide [Victoza] 1.8 mg SUBQ DAILY 01/15/19 01/15/19 Unknown History - History of Present Illness-ABD Nature of Presenting Problems: Pt is a 68 who presents to the ED via EMS with a CC of rectal bleeding. Pt reports he began to have diarrhea thsi evening and has 3 episodes of watery brown diarrhea then at about midnight had a blowe movement that was flank bright red blood. Pt denies nausea and vomiting. Pt reports having a colonoscopy on JAN 05 and had a polyp removed. Is on plaxvix and ASA due to a prior cardiac sent. Slight LLQ abdominal pain, no prior GI bleeding Quality of Pain: reports: none Onset/Duration: reports: 4-6 hours ago Timing: reports: still present Activities at Onset: reports: none Exposure to sick contacts?: No Modifying Factors: improves with: nothing Associated Symptoms: reports: diarrhea Last BM: other (12 am) Dark Stools Present?: reports: bright red blood Rectal Bleeding: reports: bloody diarrhea # of Diarrhea Episodes: 3 Rectal Pain: reports: none # of Vomiting Episodes: 0 Bruising or Bleeding Gums?: No Similar Symptoms Previously?: No Recently seen or treated by another doctor?: No Review of Systems - Adult - REVIEW OF SYSTEMS - ADULT Constitutional: reports: see HPI Eyes: reports: no symptoms reported Ears, Nose, Mouth & Throat: reports: no symptoms reported Cardiovascular: reports: no symptoms reported Respiratory: reports: no symptoms reported Gastrointestinal: reports: see HPI, diarrhea (bloody diarrhea), rectal bleeding Genitourinary: reports: no symptoms reported Musculoskeletal: reports: no symptoms reported Integumentary: reports: no symptoms reported Neurological: reports: no symptoms reported Psychiatric: reports: no symptoms reported Endocrine: reports: no symptoms reported Hematologic/Lymphatic: reports: no symptoms reported Allergic/Immunologic: reports: no symptoms reported All Other Systems: Reviewed and Negative Past History - Adult - PAST MEDICAL HISTORY-ADULT Review of Records: reports: Old Records Reviewed, Nursing Assessment Review, Medications Reviewed, Social history reviewed & non-contributory. Cardiovascular: reports: CAD, HTN Genitourinary: reports: kidney disease - SOCIAL HISTORY Smoking: quit greater than 1 year Substance Use: denies Living Situation: family Physical Exam-General - PHYSICAL EXAM-ADULT Initial Vital Signs Reviewed: Yes - CONSTITUTIONAL General Appearance: alert - EYES Eyes: PERRL/EOMI, pink conjunctivae - HEAD, EARS, NOSE, MOUTH & THROAT HENMT: normocephalic/atraumatic, moist mucous membranes - NECK Neck: non-tender, full range of motion, supple - RESPIRATORY Respiratory: chest non-tender, lungs clear, normal breath sounds. negative: crackles, rhonchi - CARDIOVASCULAR Cardiovascular: normal peripheral pulses, regular rate, rhythm. negative: tachycardia - GASTROINTESTINAL (ABDOMEN) Abdominal Exam: normal bowel sounds, soft, tenderness (mild llq). negative: guarding - MUSCULOSKELETAL Back Exam: normal inspection Extremity: normal range of motion, non-tender - SKIN Integumentary: normal color, normal turgor, warm/dry. negative: ecchymosis, erythema - NEUROLOGIC Neurologic: grossly normal - PSYCHIATRIC Psych/Mental Status: normal mood/affect, normal thought content, normal thought process, oriented x 3 Progress - PLAN OF CARE/RESULTS Progress/Plan/Lab Results: Vital Signs - 8 hr 01/15/19 01:35 Temperature 97.8 F Pulse Rate 88 Respiratory Rate 17 Blood Pressure 116/56 O2 Sat by Pulse Oximetry 98 abdominal pain and rectal bleeding will further evaluate for causes including but not limited to diverticular bleeding, colitis, post polypectomy bleeding, other GI bleed. Vitals stable Result Diagrams: 01/15/19 01:48 01/15/19 01:48 - REASSESSMENT Reassessment #1 Status: other (Marked anemia, discussed risks and benefits of transfusion with pt and pt agreeable to transfusion. Will transfuse 2 units PRBC's. Pt also with elevated creatinine so CT will be done without contrast.) Reassessment #2 Status: improving (Transfusion in process. Feeling well, continued slight rectal bleeding. Will admit for further evaluation and treatment. Discussed case with Dr. Jacinto, Hospitalist, who will see and admit pt.) - CT/MRI 1 CT Study: Abdomen, Pelvis Impression: Normal (per radiologist read: "unremarkable bowel, no obstruction free air of fluid, nonspecific perinephric stranding Bilaterally) Departure - Departure Date of Disposition Decision: 01/15/19 Time of Disposition Decision: 04:47 DIAGNOSIS: GI bleed Qualifiers: GI bleed type/associated pathology: unspecified gastrointestinal hemorrhage type Qualified Code(s): K92.2 - Gastrointestinal hemorrhage, unspecified Disposition: ADMITTED INPATIENT 09 Certified Medical Emergency: Emergent Condition: Serious - Critical Care Note This patient required my direct & personal management of CC.: No Attestation - Physician/ SALVATORE Attestation Patient care was provided by Advanced Practice Provider:: No The physician spent face to face time with patient:: Yes Advanced Practice Provider documentation review:: Supervising physician onsite and consulted in the evaluation and care of this patient. The physician did have a face to face encounter with the patient. This chart was documented by the indicated scribe, (Anamaria Amador Scribe) and accurately reflects the services I performed and decisions made by me, Monica Cabrera MD, as attested by the provider's signature.
[2019-01-15] MEDS ORDERED: ZOFRAN IV PRN (05:15)
[2019-01-15] MEDS ORDERED: TYLENOL PO PRN (05:15)
[2019-01-15] MEDS ORDERED: SODIUM CHLORIDE 0.9% INJ SCH (05:30)
[2019-01-15] MEDS: PROTONIX IV SCH ×2 (05:45→18:33)
[2019-01-15] MEDS: NS 1,000 ML IV SCH ×3 (05:45→16:57)
[2019-01-15] MEDS: HUMULIN R SUBQ SCH ×4 (06:09→20:11)
--- NOTE | 2019-01-15 07:15 | Diag Imaging Result Doc PS360 ---
EXAM: CT ABDOMEN/PELVIS W/O CONTRAST HISTORY: abd pain with GI bleed, CR 2.9 thus no contrast TECHNIQUE: CT abdomen and pelvis without contrast COMPARISON: None. FINDINGS: There is a small amount of bronchiectasis medially in the right middle lobe. There are calcified granuloma in the right lower lobe. There are several tiny stones within a moderately distended gallbladder. No adjacent inflammation. No focal hepatic abnormality identified on this noncontrasted exam. Normal spleen, pancreas, and adrenal glands. No renal stones. No hydronephrosis. Moderate atherosclerosis. No aortic aneurysm. No inflammation about the cecum. No bowel obstruction. No ascites. Urinary bladder is mildly distended and is normal. Normal prostate. Moderate degenerative changes in the lower lumbar spine. IMPRESSION: 1.Cholelithiasis 2.Right middle lobe bronchiectasis with right lower lobe granuloma 3.A preliminary report was given at 3:49 AM This exam was performed using automated exposure control, adjustment of mA or kV according to patient size, and/or use of iterative reconstruction technique. Electronically signed by Bang Dean 01/15/2019 7:12 AM
[2019-01-15 08:27] LABS: HEMATOCRIT 23.6 % (42.0-52.0); MCH 23.6 PG (27-31); MCHC 29.7 g/dL (33-37); MCV 79.7 FL (81-99); MPV 10.3 FL (7.4-10.4); RBC 2.96 XMIL (4.7-6.1); RDW 18.7 % (11.5-14.5); WBC 5.44 X1000 (4.8-10.8)
--- NOTE | 2019-01-15 12:59 | HISTORY AND PHYSICAL ---
PRIMARY CARE PHYSICIAN: Dr. Brown. CHIEF COMPLAINT: Blood in stools. HISTORY OF PRESENTING ILLNESS: A 68-year-old male with a history of COPD, diabetes mellitus type 2, coronary disease, chronic kidney disease who had presented to emergency department with a 1-day history of having blood in the stool. He states it was dark colored and he is feeling somewhat weak. The patient states that he recently had a colonoscopy about a week ago and was off his Plavix and just recently started it. The patient was evaluated in the emergency department. Due to his presenting symptoms, he will need admission for further management. At the time of my examination, patient denied any headache, fever, chills, chest pain, shortness of breath or any weight changes but complained of blood in stools. PAST MEDICAL HISTORY: Includes COPD, diabetes mellitus type 2, hyperlipidemia, chronic kidney disease, hypothyroidism, coronary artery disease. PAST SURGICAL HISTORY: Coronary stent, sinus surgery. ALLERGIES: No known drug allergies. CURRENT MEDICATIONS: Include albuterol nebs daily, aspirin 81 mg p.o. daily, atorvastatin 20 mg p.o. daily, carvedilol 3.21 mg p.o. daily, Plavix 75 mg p.o. daily, glimepiride 4 mg p.o. b.i.d., levothyroxine 100 mcg p.o. daily, Tradjenta 5 mg p.o. daily, Victoza 1.8 mg subcu daily, losartan 50 mg p.o. daily, trazodone 50 mg p.o. b.i.d. SOCIAL HISTORY: He is a former smoker. Denies any history of alcohol or illicit drug use. FAMILY HISTORY: No history of coronary disease. REVIEW OF SYSTEMS: Fourteen point review of systems is as in HPI. Other systems negative. PHYSICAL EXAMINATION: GENERAL: Cooperative, friendly male. He is resting comfortably now. VITAL SIGNS: Temperature 97.8 degrees, pulse 79, respiration 13, blood pressure 150/70. HEENT: Atraumatic, normocephalic. Extraocular movements intact. PERRLA. NECK: No masses. CHEST: Clear to auscultation. CARDIOVASCULAR: Regular rate and rhythm. ABDOMEN: Soft, positive bowel sounds. EXTREMITIES: No edema. NEUROLOGIC: He is awake, alert, oriented x3. : No bladder distention. SKIN: Warm. LABORATORIES AND STUDIES: WBCs 6.43, hemoglobin 6.6, hematocrit 22.9, platelets 181,000. Sodium 135, potassium 5.0, chloride 100, CO2 is 21, BUN is 44, creatinine is 2.8, glucose is 244. ASSESSMENT: A 68-year-old male with a history of COPD, diabetes mellitus type 2, chronic kidney disease, hyperlipidemia coronary artery disease who had presented to emergency department with 1- day history of having dark blood in the stools. He was evaluated in the emergency department and due to his presenting symptoms, he will need admission for further management. 1. Suspected upper gastrointestinal bleed. 2. Diabetes mellitus type 2. 3. Acute on chronic kidney disease. 4. Chronic obstructive pulmonary disease. 5. Hypertension. PLAN: 1. We will admit patient to medical floor with telemetry. 2. We will keep patient NPO. 3. Patient was started on blood transfusion in the ED. 4. Continue patient on a PPI. 5. We will consult Gastroenterology. 6. We will continue to monitor blood glucose and put patient on sliding scale insulin regimen. 7. We will continue with IV fluids and monitor renal function. 8. We will continue with DuoNeb p.r.n. 9. Monitor blood pressure closely. 10. Put patient on DVT prophylaxis with SCD. 11. We will continue to follow and reassess. Make further recommendation based on patient's clinical course. cc: Bienvenido Jacinto MD
[2019-01-15 14:55] LABS: HEMATOCRIT 23.1 % (42.0-52.0); HEMOGLOBIN 7.1 g/dL (14.0-18.0)
[2019-01-15] MEDS: ICAR-C PO SCH (20:17)
--- NOTE | 2019-01-16 | GASTROENTEROLOGY CONSULTATION ---
DATE: 01/15/2019 REQUESTING PHYSICIAN: Dr. Brown. REASON FOR CONSULTATION: Rectal bleeding. HISTORY OF PRESENT ILLNESS: Mr. Allen is a 68-year-old male who was admitted earlier today for new onset of blood in the stools. The patient has had a recent colonoscopy 10 days ago at [facility] by Dr. Dozier, and a polyp was removed. He also had an EGD done at the same time for workup of chronic anemia. He was off Plavix for 7 days before the procedure and restarted Plavix 7 days after the procedure, but earlier today, in the rehab technician hours, he felt like the urge to use the bathroom, and when he used the bathroom he noted bright red blood and dark blood in the commode. He was brought to the hospital. In the hospital, his blood counts were noted to be low with a hematocrit 22.9. He was given 2 units of blood transfusion. The patient has been on aspirin and Plavix, his last dose was yesterday. The patient also has a history of chronic anemia for which he has received iron infusions in the past. PAST MEDICAL HISTORY: COPD, diabetes type 2, coronary disease, chronic kidney disease, colon polyps, chronic anemia, hypothyroidism, hyperlipidemia, syncope, BPH. PAST SURGICAL HISTORY: Coronary artery stent, sinus surgery, EGD and colonoscopy done by Dr. Dozier 10 days ago as an outpatient. ALLERGIES: No known drug allergies. MEDICATIONS IN THE HOSPITAL: 1. Tylenol. 2. Sliding-scale regular insulin. 3. Normal saline 100 mL/h. 4. Zofran. 5. Protonix b.i.d. The patient currently NPO except ice chips. REVIEW OF SYSTEMS: Denies any fevers, rigors, chills, chest pain, shortness of breath, dyspnea. Denies any vomiting blood. Did complain of blood in the stools. Denies any major neurological complaints. Denies any major arthritis. He does take blood thinners, aspirin and Plavix, at home. PHYSICAL EXAMINATION: Vital Signs: Temperature 98.3 degrees, pulse of 75, respiratory rate 16, blood pressure 106/64, saturating 98% on room air. Body weight of 268 pounds. BMI 34 kg/m2. General: lying in bed, in no acute distress. HEENT: Pale conjunctivae. No icterus. Pupils equal, reactive to light. Neck: Supple. Abdomen: Protuberant, obese, soft, nontender, nondistended. No guarding or rebound. Extremities: No cyanosis, clubbing, edema. Neurologic: Alert awake oriented. LABS: Hemoglobin and hematocrit is 7 and 22.9, white count of 5.4, platelet count of 138,000. Sodium of 130, potassium 5, chloride 100, bicarb 21, anion gap of 14, BUN of 44, creatinine 2.8. Glucose of 244, calcium is 8.4, total bilirubin is 0.36, AST 15, ALT 19, alkaline phosphatase 69, total protein is 5.8, albumin of 3.6, lipase of 95. INR 1.14, PT of 14.8. Percent neutrophils of 79. CT of the abdomen and pelvis done on 01/15/2019 showed evidence of cholelithiasis right, middle lobe bronchiectasis with right lower lobe granuloma. No bowel obstruction. Moderate degenerative changes in the lower lumbar spine were noted. IMPRESSION AND PLAN: 1. Gastrointestinal bleeding. Could be post polypectomy bleeding from recent colonoscopy done 10 days ago in the setting of use of aspirin and Plavix. 2. Chronic obstructive pulmonary disease. 3. Type 2 diabetes. 4. Hyperlipidemia. 5. Chronic kidney disease. 6. Chronic anemia, which is worsened. 7. Hypothyroidism. 8. Coronary artery disease. 9. Anemia. 10 Coronary Stents placed in 2008. RECOMMENDATIONS: Will continue to watch the patient's hemoglobin and hematocrit and transfuse 2 units of blood transfusion if hemoglobin falls below 7 g/dL. His aspirin and Plavix have been held. He will continue Protonix twice daily. We will continue sliding-scale regular insulin. We will obtain records from Dr. Dozier's office about the recent EGD, colonoscopy. If the patient continues to have gastrointestinal bleeding, then he may need EGD and/or colonoscopy based on his clinical course. We will follow along. The above plans discussed with the patient and family at bedside. All questions answered. Please call us with any further questions. I also spoke with Dr. Gates, who will see the patient tomorrow as patient has a history of coronary stents and has been on dual antiplatelet therapy for that. Please call us with any further questions. cc: MD Amadeo Hagen MD William D. Denney, MD FAX[facility] HOSPITALSarthak
[2019-01-16] MEDS: NS 1,000 ML IV SCH (03:18)
[2019-01-16] MEDS: HUMULIN R SUBQ SCH ×4 (06:22→20:37)
[2019-01-16 06:24] LABS: BASO# 0.02 X1000 (0.0-0.2); BASO% 0.4 % (0.0-0.8); EOS# 0.07 X1000 (0.0-0.7); EOS% 1.5 % (0.0-10.0); HEMATOCRIT 22.6 % (42.0-52.0); HEMOGLOBIN 6.6 g/dL (14.0-18.0); IMM GRAN# 0.02 X1000 (0.0-0.04); IMM GRAN% 0.4 % (0.0-0.5); LYMPH% 28.7 % (20.5-51.1); MCH 23.8 PG (27-31); MCHC 29.2 g/dL (33-37); MCV 81.6 FL (81-99); MONO# 0.29 X1000 (0.11-0.59); MONO% 6.4 % (1.7-9.3); MPV 11.1 FL (7.4-10.4); NEUT# 2.83 X1000 (1.4-6.5); NEUT% 62.6 % (42.2-75.2); PLT 125 X1000 (130-400); RBC 2.77 XMIL (4.7-6.1); RDW 19.5 % (11.5-14.5); WBC 4.53 X1000 (4.8-10.8)
[2019-01-16] MEDS: PROTONIX IV SCH ×2 (06:24→18:05)
[2019-01-16 07:05] LABS: CREATININE 2.3 mg/dL (0.7-1.2); POTASSIUM 4.2 mmol/L (3.5-5.1)
[2019-01-16] MEDS: ICAR-C PO SCH ×2 (09:11→20:46)
[2019-01-16] MEDS: CENTRUM SILVER PO SCH (09:12)
[2019-01-16 10:00] LABS: CALCIUM 8.4 mg/dL (8.8-10.2)
--- NOTE | 2019-01-16 12:04 | GASTROENTEROLOGY PROGRESS NOTE ---
DATE: 01/16/2019 ATTENDING PHYSICIAN: Dr. Brown. SUBJECTIVE: Patient is resting in bed. He has not had any bowel movements since admission but his hematocrit has continued to trend down. His hemoglobin and hematocrit this morning were 6.6 and 22.6. He is getting 1 unit of blood transfusion.This is his third transfusion during this hospital stay. OBJECTIVE: Vital Signs: Temperature of 98 degrees, pulse rate 77, respiratory rate 18, blood pressure 132/69, saturating 92% on room air. Body weight of 264 pounds and 6 ounces. BMI 33.9 kg/m2. General Appearance: Moderately built, moderately nourished, lying in bed, in no acute distress. HEENT: Pale conjunctivae. No icterus. Pupils equal, reactive to light. Neck: Supple. Abdomen: Protuberant, obese, soft, nontender, nondistended. No guarding. No rebound. Extremities: No cyanosis, clubbing, edema. Neurologic: He was alert, awake, oriented x3. LABS: Hemoglobin and hematocrit are 6.6 and 22.6, white count of 4.53, platelet count of 125,000. Sodium of 141, potassium 4.2, chloride of 108, bicarb of 22, anion gap of 11, BUN of 35, creatinine of 2.3, glucose of 133, calcium is 8.4. AST 15, ALT 19, alkaline phosphatase 69, total protein 5.8, albumin of 3.6, lipase of 95. ASSESSMENT AND PLAN: 1. Anemia. 2. Gastrointestinal bleeding of unclear source. The patient had recent esophagogastroduodenoscopy and colonoscopy done [address] Dozier. The patient had been on aspirin and Plavix, which he resumed 3 days ago. The last dose was 2 days ago. 3. Chronic obstructive pulmonary disease. 4. Type 2 diabetes. 5. Hyperlipidemia. 6. Obesity. 7. Chronic kidney disease. 8. Chronic anemia in the past for which he received iron infusions. 9. Hypothyroidism. 10. Coronary artery disease. 11. History of coronary stents placed in 2008. RECOMMENDATIONS: 1. We will start the patient on a clear liquid diet. We will schedule for EGD tomorrow. The patient does not have any signs of active bleeding at the moment. We will obtain his records from Dr. Dozier's office in the morning. In the meanwhile, we will continue watch his hemoglobin and hematocrit. He will continue on iron C b.i.d., a multivitamin once daily. He will continue on Protonix twice daily. He will continue on insulin sliding scale. 2. He may need colonoscopy if EGD is negative. Further recommendations to follow pending the hospital course. Discussed the above with the patient and all questions were answered. Please call us with any further questions. cc: MD Amadeo Hagen MD MTDD
--- NOTE | 2019-01-16 15:14 | CONSULTATION ---
DATE OF CONSULTATION: 01/16/2019 IMPRESSION: 1. Acute gastrointestinal blood loss on dual antiplatelet therapy following recent colonoscopy with polypectomy. 2. Atherosclerotic coronary disease. Patient is status post coronary angioplasty/stenting of left anterior descending coronary in August of 2008 with PROMUS JUSTA 3.0 x 15 mm stent. He continues without angina. Last stress test one year ago was negative for evidence of inducible myocardial ischemia. 3. Type 2 diabetes mellitus. 4. Hyperlipidemia. 5. Previous lacunar cerebrovascular accident in the past. 6. Chronic kidney disease. RECOMMENDATIONS: 1. I agree with interruption of antiplatelet therapy. 2. Once patient is felt to be stable from a GI standpoint, to resume antiplatelet therapy, would resume single antiplatelet therapy rather than dual antiplatelet therapy for now. 3. Continue medical management from a cardiovascular standpoint otherwise. HISTORY: This 68-year-old, white male with a past history of atherosclerotic coronary disease as outlined above, type 2 diabetes mellitus, hypertension, chronic kidney disease, and hypothyroidism was admitted recently with a 1-day history of bright red blood per rectum. He recently had a colonoscopy with polypectomy. He also had upper GI endoscopy at that time. He was advised that he had an old healed ulcer. He resumed dual antiplatelet therapy 1 week after colonoscopy and not long thereafter, started having bright red blood per rectum. He has required transfusion. Cardiology was consulted regarding his management from a cardiovascular standpoint. He was hospitalized six weeks or so ago with a syncopal episode the was probably related to orthostatic hypotension. Medications were altered. He has been on dual antiplatelet therapy since his stent to his left anterior descending coronary in 2008. During previous hospitalization, he had brain imaging studies which suggested old lacunar infarct. He continues without angina or dyspnea. PAST MEDICAL HISTORY: 1. Atherosclerotic coronary disease as outlined above. 2. Hypertension. 3. Type 2 diabetes mellitus. 4. Chronic kidney disease. 5. Hyperlipidemia. 6. Chronic obstructive pulmonary disease. 7. Hypothyroidism. PAST SURGICAL HISTORY: Includes previous unspecified sinus surgery. ALLERGIES: He has no known drug allergies. MEDICATIONS PRIOR TO ADMISSION: As listed. SOCIAL HISTORY: He is . He is a former smoker. He does not use alcohol. FAMILY HISTORY: Negative for premature coronary artery disease. REVIEW OF SYSTEMS: Pulmonary: Negative. Gastrointestinal: Noncontributory beyond history of present illness. Constitutional: Noncontributory beyond history of present illness. Remainder of review of systems is negative/noncontributory beyond history of present illness with 14 total systems reviewed. PHYSICAL EXAMINATION: General: This is a pleasant, older, white male in no distress on room air. Vital Signs: Blood pressure 135/67, heart rate 88, oxygen saturation 100% on room air. HEENT Examination: Extraocular movements appear intact. Mucous membranes are moist. Neck: Supple without jugular venous distention. There are no carotid bruits. Chest: Clear to auscultation. Cardiac Examination: Reveals a regular rate and rhythm without appreciable murmur or gallop. Abdomen: Soft. Bowel sounds are normal. Extremities: Without edema. Neurologic Examination: Reveals him to be alert and fully oriented. Speech is fluent. He moves all 4 extremities equally well. Skin: Warm and dry. Psychiatric Examination: Reveals mood to be appropriate. LABORATORY DATA: Includes a white blood cell count of 4.53, hematocrit 22.6, hemoglobin 6.6, platelet count 125,000. Sodium 141, potassium 4.2, chloride 108, carbon dioxide 22, BUN 35, creatinine 2.3, glucose 93. cc: Georgi Gates MD
--- NOTE | 2019-01-16 17:55 | PROGRESS NOTE ---
DATE: 01/16/2019 SUBJECTIVE: Patient notes that he had more blood in his stool overnight. Denies any chest pain or palpitations. Denies any fevers or chills. PHYSICAL EXAMINATION: Vital Signs: Reviewed. He is awake and alert. He is in no current respiratory distress. Pleasant to talk with. HEENT: Normocephalic. Neck: Supple. Cardiovascular: Regular rate. Chest: Clear. Abdomen: Soft. Extremities: Moves all extremities. ASSESSMENT: 1. Anemia secondary to gastrointestinal bleed. He did recently have an endoscopy with a biopsy. His hemoglobin and hematocrit have again dropped to 6 and 22. He has been typed, crossed, and is currently receiving his 1st unit in transfusion. 2. Diabetes. 3. [id number] renal failure. 4. Chronic obstructive pulmonary disease. 5. Hypertension. PLAN: We will continue patient in the hospital. GI is on board. He will likely require further endoscopy after transfusion. Further orders as needed. cc: Amadeo Brown MD
[2019-01-16 19:20] LABS: HEMATOCRIT 26.6 % (42.0-52.0); HEMOGLOBIN 8.1 g/dL (14.0-18.0)
[2019-01-17] MEDS: PROTONIX IV SCH ×2 (05:46→17:21)
[2019-01-17] MEDS: HUMULIN R SUBQ SCH ×4 (06:21→20:17)
[2019-01-17] MEDS ORDERED: DIPRIVAN 1% ONE (09:25)
[2019-01-17] MEDS ORDERED: XYLOCAINE-MPF 2% ONE (09:25)
--- NOTE | 2019-01-17 09:49 | ENDOSCOPY OPERATIVE NOTE ---
[facility] ENDOSCOPY OPERATIVE NOTE , PATIENT: Georgi Allen ADMISSION DATE: MR#: [id number] : 1950 EGD PROCEDURE REPORT PROCEDURE DATE: 01/17/2019 SURGEON: Shawn Briones MD STATUS: inpatient [employer]LLAR TAILOR: Michelle Foster and Debi Reed PREOPERATIVE DIAGNOSIS: The patient is a 68 yr old male here for an EGD due to anemia secondary to c hronic blood loss and Dark stools, Had Recent EGD and colonoscopy 12 days ago at [facility] with Dr Dozier. PROCEDURE PERFORMED: EGD, diagnostic MEDICATIONS: Per Anesthesia TOPICAL ANESTHETIC: none CONSENT: The patient understands the risks and benefits of the procedure and understands that these r isks include, but are not limited to: sedation, allergic reaction, infection, perforation and/or bleeding. Alternative means of evaluation and treatment include, among others: physical exam, x-rays, and/or surgical intervention. The patient elects to proceed with this endoscopic procedure. HISORY AND PHYSICAL: 01/17/2019 DESCRIPTION OF PROCEDURE: During intra-op preparation period all mechanical and medical equipment was checked for proper function. Hand hygiene and appropriate measures for infection prevention was taken. After the risks, benefits and alternatives of the procedure were thoroughly explained, Informed consent was verified, confirmed and timeout was successfully executed by the treatment team. The patient was anesthetized with topical anesthesia and the XJ50-[id number] ([id number]) endoscope was introduced through the mouth and advanced to the third portion of the duodenu m. Retroflexion was performed in the stomach and revealed no abnormalities. The gastroscope was then slowly withdraw n and removed. ESOPHAGUS: The mucosa of the esophagus appeared normal. STOMACH: Small amount of bile was noted in the stomach; Mild gastritis noted in the stomach body and antrum. No ulcers noted. No fresh or old blood noted in the stomach. DUODENUM: The duodenal mucosa showed no abnormalities in the duodenal bulb, 1st part duodenum, and 2n d part duodenum. SPECIMENS REMOVED: ADVERSE EVENTS: There were no complications. POSTOPERATIVE DIAGNOSIS: 1. The mucosa of the esophagus appeared normal 2. Small amount of bile was noted in the stomach; Mild gastritis noted in the stomach body and antru m. No ulcers noted. No fresh or old blood noted in the stomach 3. The duodenal mucosa showed no abnormalities in the duodenal bulb, 1st part duodenum, and 2nd part duodenum RECOMMENDATIONS: Colonoscopy in AM Start CLD, Golytely and NPO past midnight. Transfuse as needed. REPEAT EXAM: Shanw Briones MD eSigned: Shawn Briones MD 01/17/2019 9:48 AM cc: PATIENT NAME: Georgi Allen MR#: [id number]
[2019-01-17] MEDS: CENTRUM SILVER PO SCH (10:07)
[2019-01-17] MEDS: ICAR-C PO SCH ×2 (10:07→20:20)
[2019-01-17] MEDS ORDERED: GOLYTELY PO ONE (12:00)
--- NOTE | 2019-01-17 14:03 | PROGRESS NOTE ---
DATE: 01/17/2019 SUBJECTIVE: The patient notes that he is feeling fine. He has had no more blood in his stool. Denies any nausea, vomiting. Denies any abdominal pain. PHYSICAL EXAMINATION: Vital Signs: Temp 98, pulse 71, respiratory rate 18, BP 147/64. General: The patient is awake, currently in no respiratory distress. HEENT: Normocephalic. Neck: Supple. Cardiovascular: Regular rate. Chest: Clear. Abdomen: Soft, nondistended. Extremities: Moves all extremities. ASSESSMENT: 1. Anemia secondary to gastrointestinal bleed. 2. Diabetes type 2. 3. Acute on chronic kidney disease, improving. Creatinine is down to 2.3. 4. Chronic obstructive pulmonary disease. 5. Hypertension. PLAN: The patient has received, I believe, 4 total units in transfusion. He is going to have an EGD at some point today. If that is abnormal, then he will be treated. If it is normal, he may require endoscopy to ascertain where his blood loss originated from. Will continue to follow. Currently is n.p.o. for EGD. cc: Amadeo Brown MD
--- NOTE | 2019-01-17 14:28 | PROGRESS NOTE ---
DATE: 01/17/2019 SUBJECTIVE: The patient continues without chest discomfort or dyspnea. He had upper GI endoscopy today with benign findings. He is being prepped for colonoscopy, taking GoLYTELY. He has had some red-colored diarrhea with this. OBJECTIVE: Vital Signs: Blood pressure 137/69, heart rate 74. Neck: There is no significant jugular venous distention. Chest: Clear to auscultation. Cardiac: Regular rate and rhythm, without appreciable murmur or gallop. Extremities: There is no evidence of peripheral edema. LABORATORY DATA: Includes a white blood cell count of 4.53, hematocrit 26.6, hemoglobin 8.1, platelet count 125,000. Sodium 141, potassium 4.2, chloride 108, carbon dioxide 22, BUN 35, creatinine 2.3, glucose 93. IMPRESSION: 1. Acute gastrointestinal blood loss, on dual antiplatelet therapy following recent colonoscopy with polypectomy. 2. Atherosclerotic coronary disease and previous coronary angioplasty/stenting of left anterior descending coronary in 08/2008 with PROMUS drug-eluting 3.0 x 15 mm stent. He continues without angina. Stress test 1 year ago was negative. 3. Type 2 diabetes mellitus. 4. Hyperlipidemia. 5. Previous lacunar cerebrovascular accident of unknown age. 6. Chronic kidney disease. RECOMMENDATIONS: 1. Continue to hold antiplatelet therapy. 2. Once the patient is felt to be stable from a GI standpoint to resume antiplatelet therapy, would resume coated aspirin 81 mg daily, but not resume Plavix. 3. Continue medical management from a cardiovascular standpoint. cc: Georgi Gates MD
[2019-01-17 22:28] LABS: BASO# 0.02 X1000 (0.0-0.2); BASO% 0.5 % (0.0-0.8); EOS# 0.07 X1000 (0.0-0.7); EOS% 1.7 % (0.0-10.0); HEMATOCRIT 26.5 % (42.0-52.0); MCH 24.6 PG (27-31); MCHC 30.2 g/dL (33-37); MCV 81.5 FL (81-99); MONO# 0.24 X1000 (0.11-0.59); MONO% 5.8 % (1.7-9.3); NEUT# 2.61 X1000 (1.4-6.5); PLT 118 X1000 (130-400); RBC 3.25 XMIL (4.7-6.1); RDW 19.6 % (11.5-14.5); WBC 4.14 X1000 (4.8-10.8)
[2019-01-18 04:17] LABS: BASO# 0.02 X1000 (0.0-0.2); BASO% 0.4 % (0.0-0.8); EOS# 0.09 X1000 (0.0-0.7); EOS% 1.9 % (0.0-10.0); HEMATOCRIT 27.2 % (42.0-52.0); HEMOGLOBIN 8.2 g/dL (14.0-18.0); LYMPH# 1.26 X1000 (1.2-3.4); LYMPH% 26.1 % (20.5-51.1); MCH 25.4 PG (27-31); MCHC 30.1 g/dL (33-37); MCV 84.2 FL (81-99); MONO# 0.32 X1000 (0.11-0.59); MONO% 6.6 % (1.7-9.3); MPV 10.3 FL (7.4-10.4); NEUT# 3.13 X1000 (1.4-6.5); PLT 128 X1000 (130-400); RBC 3.23 XMIL (4.7-6.1); RDW 20.1 % (11.5-14.5); WBC 4.82 X1000 (4.8-10.8)
[2019-01-18 06:18] LABS: CALCIUM 8.7 mg/dL (8.8-10.2); CREATININE 2.3 mg/dL (0.7-1.2)
[2019-01-18] MEDS: PROTONIX IV SCH (06:24)
[2019-01-18] MEDS: HUMULIN R SUBQ SCH ×2 (06:29→12:11)
[2019-01-18] MEDS ORDERED: DIPRIVAN 1% ONE (07:54)
[2019-01-18] MEDS ORDERED: FENTANYL ONE (07:55)
--- NOTE | 2019-01-18 08:25 | ENDOSCOPY OPERATIVE NOTE ---
[facility] ENDOSCOPY OPERATIVE NOTE , PATIENT: Georgi Allen ADM DATE: 01/18/2019 MR #: [id number] : 1950 COLONOSCOPY PROCEDURE REPORT PROCEDURE DATE: 01/18/2019 SURGEON: William Lopez MD STATUS: inpatient [employer]ER: PREOPERATIVE DIAGNOSIS: The patient is a 68 yr old male here for a colonoscopy due to Post-polypecto my bleed; recent EGD/colonoscopy on 01/05 with removal of 11mm polyp in proximal ascending by hot snare. Gastric biop sies showed H pylori infection. EGD on 01/17 was negative for UGIB. PROCEDURE PERFORMED: Colonoscopy, diagnostic MEDICATIONS: Per Anesthesia PREP TYPE: GoLytely
[2019-01-18 08:51] VITALS: BP 156/60
[2019-01-18] MEDS: ICAR-C PO SCH (09:29)
[2019-01-18] MEDS: CENTRUM SILVER PO SCH (09:29)
[2019-01-18 10:17] LABS: BASO# 0.01 X1000 (0.0-0.2); BASO% 0.2 % (0.0-0.8); EOS# 0.06 X1000 (0.0-0.7); EOS% 1.3 % (0.0-10.0); HEMATOCRIT 29.3 % (42.0-52.0); HEMOGLOBIN 8.8 g/dL (14.0-18.0); LYMPH# 0.92 X1000 (1.2-3.4); LYMPH% 19.6 % (20.5-51.1); MCH 24.6 PG (27-31); MCV 81.8 FL (81-99); MONO# 0.29 X1000 (0.11-0.59); MONO% 6.2 % (1.7-9.3); NEUT# 3.41 X1000 (1.4-6.5); NEUT% 72.7 % (42.2-75.2); PLT 138 X1000 (130-400); RBC 3.58 XMIL (4.7-6.1); RDW 20.2 % (11.5-14.5); WBC 4.69 X1000 (4.8-10.8)
--- NOTE | 2019-01-20 15:41 | DISCHARGE SUMMARY ---
ADMISSION DATE: 01/15/2019 DISCHARGE DATE: 01/18/2019 FINAL DISCHARGE DIAGNOSES: 1. Gastrointestinal bleed. 2. Mild gastritis. 3. Status post recent colonoscopy with polypectomy. 4. Coronary artery disease status post stent to the left anterior descending. 5. Diabetes mellitus type 2. 6. Hyperlipidemia. 7. History of a lacunar stroke. 8. Chronic kidney disease stage IV. 9. Morbid obesity. 10. Internal hemorrhoids. 11. Diverticulosis. CONSULTATIONS: 1. Cardiology consultation with Dr. Gates. 2. GI consultation with Dr. Briones. PROCEDURES: 1. EGD which revealed mild gastritis in the body of the stomach and antrum. No ulcers noted. 2. Colonoscopy performed on January 18, 2019, that revealed diverticula in the sigmoid colon. Small internal hemorrhoids. HOSPITAL COURSE: Mr. Allen is a 68-year-old male with a history of multiple medical problems, who presented to the ER with GI bleed. The patient had recently undergone a colonoscopy with polypectomy as outpatient. Prior to admission, the patient was noted to be on Plavix and aspirin due to his coronary artery disease. The patient's blood thinners were held and GI, as well as Cardiology were consulted. The patient initially underwent an EGD that revealed mild gastritis, but no obvious bleeding. On January 18, the patient then underwent diagnostic colonoscopy which revealed diverticulum in the sigmoid colon, as well as internal hemorrhoids, but no obvious source of bleeding. The patient's hemoglobin was noted to be stable after the procedure. Also, the patient was no longer passing blood in his stools. The patient was told to go back on an antiplatelet regimen. On the day of discharge, the patient was noted to have a hemoglobin of 8.8 with hematocrit of 29, as well as a BUN of 20 with a creatinine of 2.3. DISCHARGE MEDICATIONS: 1. Biaxin 500 mg oral twice a day x14 days. 2. Protonix 40 mg p.o. twice a day x14 days. 3. Lactobacillus 1 tab oral twice a day. 4. Amoxicillin 1000 mg oral twice a day x14 days. 5. Lipitor 20 mg p.o. daily. 6. Plavix 75 mg oral daily. 7. Albuterol inhaler p.r.n. 8. Levemir 50 units subcutaneous daily. 9. Synthroid 1 tablet oral daily. 10. Tradjenta 5 mg oral daily. 11. Losartan 50 mg oral daily. 12. Aspirin 81 mg oral daily. 13. Vitamin D 3 5000 units oral twice a week. 14. Coreg 3.125 mg oral daily. 15. Victoza 1.8 mg subcutaneous daily. 16. Lasix 40 mg p.o. daily. DISCHARGE DIET: 1800 ADA diet. ACTIVITY: As tolerated. FOLLOWUP INSTRUCTIONS: The patient will need to follow up with Dr. Gates on 02/15/2019 at 10 a.m. The patient will need to follow up with Dr. Briones on 02/08/2019 at 1:15 p.m. The patient will need to follow up with Dr. Brown on 02/01/2019 at 10 a.m. The patient was also advised to not take his trazodone while he is on triple therapy for H. pylori treatments. cc: Tabitha Francois MD
--- NOTE | 2019-01-20 15:42 | DISCHARGE SUMMARY ---
ADMISSION DATE: 01/15/2019 DISCHARGE DATE: 01/18/2019 ADDENDUM: Since the patient has chronic kidney disease, I called Georgi Allen this evening to let him know to adjust the doses of his amoxicillin and clarithromycin. The patient was advised to take amoxicillin 500 mg oral twice a day for a total of 13 days, and to take clarithromycin 250 mg oral twice a day for a total of 13 more days. The patient stated that he would make these adjustments to his medications. cc: Tabitha Francois MD
== END 2019-01-18 12:35 | disposition home or self-care (01) | DRG 378 ==
LOC: ED 01:22 → SUATTDRO 05:14 → 2N 05:14
PROVIDERS: ATTEND Internal Medicine